=== PATIENT | male | born 1970 ===

== ENCOUNTER 2020-11-27 22:49 | Outpatient (REF) | payer OTHER, SELFPAY ==
[2020-11-27 21:33] LABS: Anion Gap 5.9 mmol/L (3-11); BUN 22 mg/dL (7-18); CO2 31.1 mmol/L (21.0-32.0); CREATININE 1.03 mg/dL (0.70-1.30); Calculated LDL 105 mg/dL (<100); Chloride 104 mmol/L (98-107); Cholesterol 231 mg/dL (<200); Glucose 104 mg/dL (74-106); HDL Cholesterol 77 mg/dL (40-60); Sodium 141 mmol/L (136-145); Triglyceride 246 mg/dL (<150)
== END 2020-11-27 23:09 ==
LOC: NCHCN 22:49
PROVIDERS: Visit Provider Family Medicine
DX: Z00.00 Encounter for general adult medical examination without abnormal findings (principal)
CPT/HCPCS: 80048; 80061

== ENCOUNTER 2022-11-25 17:09 | Outpatient (REF) | payer OTHER, SELFPAY ==
[2022-11-27 12:01] LABS: COVID-19 RT-PCR UVMMC Result Negative (Negative)
== END 2022-11-25 17:10 | disposition home or self-care (01) ==
LOC: NCHCN 17:09
PROVIDERS: Visit Provider Family Medicine
DX: Z20.822 Contact with and (suspected) exposure to COVID-19 (principal); J06.9 Acute upper respiratory infection, unspecified
CPT/HCPCS: U0003

== ENCOUNTER 2025-04-19 16:40 | Outpatient (REF) | payer OTHER, SELFPAY ==
[2025-04-19 21:25] LABS: Absolute Basophil Count 0.02 10^3/uL (0.0-0.2); Absolute Eosinophil Count 0.04 10^3/uL (0.0-0.7); Absolute Lymphocyte Count 1.13 10^3/uL (1.2-3.4); Absolute Monocyte Count 0.34 10^3/uL (0.1-0.8); Absolute Neutrophil Count 1.78 10^3/uL (1.2-6.7); Basophils % 0.6 %; Eosinophils % 1.2 %; HCT 46.6 % (40.0-50.0); HGB 15.8 g/dL (13.5-17.5); Lymphocytes % 34.1 %; MCH 30.2 pg (27.0-33.0); MCHC 33.9 % (32.0-36.0); MCV 89 fL (80-95); MPV 11.7 fL (8.0-11.0); Monocytes % 10.3 %; Neutrophils % 53.8 %; Platelet Count 171 10^3/uL (130-400); RBC 5.23 10^6/uL (4.36-5.78); RDW 12.4 % (11.8-14.1); RDW-SD 40.7 fL; WBC 3.31 10^3/uL (4.4-10.8)
[2025-04-19 21:35] LABS: ALT 50 U/L (16-63); AST 35 U/L (15-37); Albumin 4.1 g/dL (3.4-5.0); Alkaline Phosphatase 75 U/L (46-116); Anion Gap 6.6 mmol/L (3-11); BUN 16 mg/dL (7-18); Bilirubin, Total 0.8 mg/dL (0.2-1.0); CO2 30.4 mmol/L (21.0-32.0); Chloride 100 mmol/L (98-107); Estimated GFR 89.44 (mL/min/1.73m2); Glucose 99 mg/dL (74-106); Potassium 3.2 mmol/L (3.5-5.1); Sodium 137 mmol/L (136-145); Total Protein 8.1 g/dL (6.4-8.2)
[2025-04-21 10:18] LABS: Lyme Ab w Rflx to Lyme Confirm Negative (Negative)
[2025-04-23 16:06] LABS: Anaplasma phagocytophilum Negative (Negative); B. miyamotoi PCR Negative (Negative); Babesia divergens/MO-1 Negative (Negative); Babesia duncani Negative (Negative); Babesia microti Negative (Negative); Ehrlichia chaffeensis Negative (Negative); Ehrlichia ewingii/canis Negative (Negative); Ehrlichia muris eauclairensis Negative (Negative)
== END 2025-04-19 16:41 | disposition home or self-care (01) ==
LOC: NCHCN 16:40
PROVIDERS: Visit Provider Internal Medicine
DX: A69.20 Lyme disease, unspecified (principal)
CPT/HCPCS: 80053; 87798; 85025; 86618

== ENCOUNTER 2025-08-10 15:05 | Outpatient (REF) | payer OTHER, SELFPAY ==
[2025-08-10 17:43] LABS: Anion Gap 6.8 mmol/L (3-11); BUN 16 mg/dL (7-18); CO2 28.2 mmol/L (21.0-32.0); Calcium 9.2 mg/dL (8.5-10.1); Calculated LDL 136 mg/dL (<100); Chloride 104 mmol/L (98-107); Cholesterol 217 mg/dL (<200); Estimated GFR 105.17 (mL/min/1.73m2); Glucose 102 mg/dL (74-106); HDL Cholesterol 67 mg/dL (>or=40); Potassium 4.3 mmol/L (3.5-5.1); Sodium 139 mmol/L (136-145); Triglyceride 73 mg/dL (<150)
== END 2025-08-10 15:06 | disposition home or self-care (01) ==
LOC: NCHCN 15:05
PROVIDERS: Visit Provider Physician Assistant
DX: Z00.00 Encounter for general adult medical examination without abnormal findings (principal); Z13.220 Encounter for screening for lipoid disorders
CPT/HCPCS: 80048; 80061